=== PATIENT | male | born 1980 | race Caucasian/White ===

== ENCOUNTER 2016-12-31 18:22 | Emergency (ER) | payer OTHER ==
[~2016-12-31] VITALS: Ht 172.7 cm; Wt 68.7 kg
[~2016-12-31 18:22] MED LIST: NICO14DI18 TD
[2016-12-31 18:27] VITALS: TEMP 36.8; Ht 172.7 cm; Wt 68.7 kg
--- NOTE | 2016-12-31 19:39 | EMERGENCY ROOM VISIT NOTE ---
ED Visit Note First contact with patient: 19:25 CHIEF COMPLAINT: Low back pain HISTORY OF PRESENT ILLNESS: This 36 showed male patient presents to the emergency department ambulatory complaining of pain in the low back and right leg which began approximately 3 weeks ago. The pain was gradual in onset, is now constant and worse with movement. The patient notes the pain as sharp and a 3/10. The patient has taken ibuprofen with no relief of the pain. The patient denies any bowel or bladder difficulties. There has been no leg numbness or weakness, and no change in sensation. No nausea or vomiting or abdominal pain. No chest pain or shortness of breath. The patient has not had prior back injuries. The patient has continued to work 12 hour days. He did see the chiropractor and did not have any relief. REVIEW OF SYSTEMS: No dysuria or increased urinary frequency. A 6 system review of systems was completed and pertinent positives and negatives are in the HPI. ALLERGIES: No known drug allergies MEDICATIONS: None PMH: None SOCIAL HISTORY: The patient is a smoker. He is employed. PHYSICAL EXAM: VITALS: Vitals are noted on the nurse's note and reviewed by myself. No abnormalities noted. GENERAL: This is a 36-year-old male, in no acute distress, nondiaphoretic, well- developed well-nourished. SKIN: The skin was without rashes, erythema, edema, or bruising. Capillary refill less than 2 seconds. NECK: Supple without nuchal rigidity. No cervical spine tenderness. No paraspinous muscle tenderness. HEART: Regular rate and rhythm without murmurs gallops or rubs. LUNGS: Clear to auscultation bilaterally without wheezes, rales or rhonchi. ABDOMEN: Positive bowel sounds x 4. Normal tympanic percussion. Soft, nontender, without masses or organomegaly. Messina sign negative. MUSCULOSKELETAL: No muscle atrophy, erythema, or edema noted of the back. There is mild tenderness over the lumbar spinous processes. There is mild tenderness over the paraspinous muscles on the right. There is no tenderness over the thoracic spine or paraspinous muscles. There are no muscle spasms present. The patient is slow to move around with maximum tenderness with extension. Positive straight leg raise test. NEURO: Patient was alert and oriented to person place and time. Normal sensation to light and sharp touch. Deep tendon reflexes 2+ in the lower extremities. Dorsalis pedis pulse 2+ bilaterally. Strength is 5/5 in the lower extremities bilaterally. EMERGENCY DEPARTMENT COURSE: The patient complains of pain in the low back and down the right leg. He states the pain is primarily in the back of the leg. An x-ray of the lumbar spine reveals disc space narrowing at L5 S1. The patient does not have any neurologic deficit on exam or by history. He does not have a fever. I do not suspect cauda equina, cord compression or infectious process. This could potentially represent a lumbar radiculopathy, sciatica or possibly a muscular strain. The patient declined muscle relaxer. He declined pain medication. I recommended that the patient rest as he has a very physical job. He was advised no lifting within 10 pounds for 5 days. The patient's did not think that he would do this. The patient will be treated with prednisone. The patient should return immediately with any signs or symptoms of neurologic deficit or infectious process. Otherwise, he should follow-up with orthopedic spine surgery and/or a family doctor. DIFFERENTIAL DIAGNOSIS: Lumbar strain, degenerative disc disease, spondylolisthesis, herniated disc, spinal stenosis, osteoporosis, fracture, cauda equina syndrome, neoplasm, infection, inflammatory arthritis, among others. LUMBAR SPINE 5 VIEWS HISTORY: low back, right leg pain COMPARISON: None. FINDINGS: There is no fracture. No subluxation. Mild disc space narrowing at L5-S1. Cholecystectomy. IMPRESSION: No fracture or subluxation within the lumbar spine. Mild disc space narrowing at L5-S1 Problem List Medical Problems: (1) Fracture of thumb, left, closed Status: Resolved Current/Historical Medications Scheduled Aspirin-Caffeine (Syl Back & Body Pain Ex), 2 TABS PO PRN UD Multivitamins/Minerals (Mvi With Minerals), 1 TAB PO DAILY Prednisone (Prednisone), 0 PO DAILY Allergies Coded Allergies: No Known Allergies (Verified , 03/11/13) Vital Signs Date Time Temp Pulse Resp B/P (MAP) Pulse Ox O2 Delivery O2 Flow Rate FiO2 12/31/16 20:56 79 18 113/78 95 12/31/16 18:27 36.8 80 18 117/75 97 Room Air Medications Administered Medications (Trade) Dose Ordered Sig/Monica Route Start Time Stop Time Status Last Admin Dose Admin Prednisone (PredniSONE TAB) 60 mg NOW STAT PO 12/31/16 20:32 12/31/16 20:33 DC 12/31/16 20:48 60 MG Departure Information Impression Primary Impression: Back pain with radiation Dispostion Home / Self-Care Condition GOOD Prescriptions Prednisone (Prednisone) 20 Mg Tab 0 PO DAILY, #18 TAB 3 DAILY FOR 3 DAYS, THEN 2 DAILY FOR 3 DAYS, THEN 1 DAILY FOR 3 DAYS. Prov: Patricia Soria PA-C 12/31/16 Referrals No Doctor, Assigned (PCP) Truong Portillo M.D. Forms HOME CARE DOCUMENTATION FORM, IMPORTANT VISIT INFORMATION, WORK / SCHOOL INSTRUCTIONS Patient Instructions ED Low Back Pain Injury, My [facility] Additional Instructions Prednisone as prescribed, until finished Continue the Zantac to help protect the stomach Return with any fevers, loss of bowel or bladder control, numbness, tingling, weakness in the extremities Otherwise, follow up with orthopedics or your family doctor for further evaluation and management Rest, no lifting more than 10 pounds for 5 days
[2016-12-31] MEDS ORDERED: MULT-513 PO (19:50)
[2016-12-31] MEDS ORDERED: ASPI1TAB4 PO (19:50)
--- NOTE | 2016-12-31 20:23 | DIAGNOSTIC IMAGING REPORT ---
LUMBAR SPINE 5 VIEWS HISTORY: low back, right leg pain COMPARISON: None. FINDINGS: There is no fracture. No subluxation. Mild disc space narrowing at L5-S1. Cholecystectomy. IMPRESSION: No fracture or subluxation within the lumbar spine. Mild disc space narrowing at L5-S1 Electronically signed by: Michele Dinh M.D. 12/31/2016 8:21 PM Dictated Date/Time: 12/31/2016 8:20 PM
[2016-12-31] MEDS ORDERED: PRED20TA PO (20:33)
[2016-12-31 20:56] VITALS: BP 113/78; PULSE 79; O2SAT 95
== END 2016-12-31 20:58 | disposition home or self-care (01) ==
LOC: C.EDB 18:23 → C.EDD 20:58
DX: M54.5 Low back pain (principal); M99.73 Connective tissue and disc stenosis of intervertebral foramina of lumbar region; Z87.81 Personal history of (healed) traumatic fracture; Z79.82 Long term (current) use of aspirin

== ENCOUNTER → 2017-06-27 | Outpatient (CLI) | payer OTHER ==
[~2017-06-27] MED LIST changes: +ASPI1TAB4 PO; +MULT-513 PO; -NICO14DI18 TD; +PRED20TA PO
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
== END | disposition home or self-care (01) ==
LOC: C.RAD1850 11:46
PROVIDERS: ATTEND Nurse Practitioner Family
DX: M54.2 Cervicalgia (principal); V89.2XXA Person injured in unspecified motor-vehicle accident, traffic, initial encounter; Y99.0 Civilian activity done for income or pay

== ENCOUNTER 2024-12-28 15:15 | Inpatient (IN) ==
--- NOTE | 2024-12-28 15:40 | Emergency Department Note ---
History of Present Illness General Chief complaint: Back Injury/Pain Stated complaint: LOW BACK PAIN, DIZZY NAUSEA Time Seen by Provider: 12/28/24 15:33 History of Present Illness Maximum Pain Intensity: 6 This is a 44-year-old male that presents to the emergency department via private vehicle accompanied by with complaints of "dizziness, nausea, near-syncope, falling to the left side, low back pain". Patient notes that for 1 month now he has been experiencing low back pain that radiates down the bilateral legs to the toes. He has been seeing the chiropractor once per week for the back. However today about an hour and a half prior to arrival he bent down and when he stood up he began with dizziness, nausea, blurred vision. notes that she picked him up from work and he was quite pale. Patient notes that he feels like he is "lopsided" and falling towards the left side when he attempts to walk. The patient denies any history of similar. He notes he is otherwise healthy. He notes history of cholecystectomy. He denies any known drug allergies. Patient denies any chest pain or shortness of breath. No trauma, injury, fevers or vomiting. He has not lost control of the bowel or bladder. No numbness or tingling in genital region. He does also note pain wrapping into the abdomen and notes bilateral flank/abdominal pain. Home Medications Medication Instructions Recorded Confirmed Type bupropion HCl 150 mg 24 hr tablet, 150 mg PO QAM #30 tabs 10/25/24 12/28/24 Rx extended release atorvastatin 40 mg tablet 40 mg PO QPM #30 tabs 11/01/24 12/28/24 Rx cholecalciferol (vitamin D3) 25 25 mcg PO DAILY 12/28/24 12/28/24 History mcg (1,000 unit) tablet (Vitamin D3) cyanocobalamin (vitamin B-12) 1,000 mcg PO DAILY 12/28/24 12/28/24 History 1,000 mcg tablet (Vitamin B-12) famotidine 10 mg tablet (Heartburn 10 mg PO DAILY 12/28/24 12/28/24 History Relief (famotidine)) magnesium 250 mg tablet 250 mg PO DAILY 12/28/24 12/28/24 History multivitamin 1 tab PO QAM 12/28/24 12/28/24 History omega [id number]-fish oil 1,200 mg 1 cap PO DAILY 12/28/24 12/28/24 History (144 mg-216 mg) capsule (Fish Oil) potassium 99 mg tablet 99 mg PO DAILY 12/28/24 12/28/24 History Allergies Allergy/AdvReac Type Severity Reaction Status Date / Time No Known Allergies Allergy Mild Verified 12/28/24 18:53 Past Med/Surg History Problem List (Updated 12/28/24 @ 23:11 by Lalo Bunch PA-C) Dizziness (Acute) Blurred vision (Acute) Abnormal CT scan (Acute) Low back pain (Acute) Stroke-like symptoms Carotid artery dissection (Acute) FHx: Lares's disease In father Encounter for screening and preventative care Sore throat Anxiety Acute URI of multiple sites Cellulitis of hand without finger or thumb, right Injury of metacarpal bone Encounter for examination following treatment at hospital Left shoulder pain Neck pain on left side Smokes 1 pack of cigarettes per day Sinusitis Chest congestion Dysphagia (Acute) Foreign body in esophagus (Acute) Generalized headaches (Acute) Joint pain (Acute) Fatigue (Acute) Surgical History Hx of cholecystectomy Family History Mother Diabetes Hypertension Father Hypertension Other Thyroid cancer Denies family history of Ovarian cancer Prostate cancer Myocardial infarction Breast cancer Colorectal cancer Social History Smoking Status: Current every day smoker Tobacco Type: Cigarettes Age Started Using Tobacco: 17; packs per day: 1; Second Hand Exposure: No; Do You Dip or Chew Tobacco: No; Hx Alcohol Use: Yes Alcohol type: beer Hx Substance Use: No Preferred Language: Maori Communication Ability: Effective Story Reader Required: No marital status: Current Living Situation: Significant Other current occupational status: employed current occupation: [employer]er How many Children do You have: 3 Feels Safe at Home: Yes Childhood Exposure to Second-Hand Smoke: Yes Diet: regular caffeine: Yes (coffee) Dental Care, Regularly: Yes Physical Activity Frequency: Does not Exercise Seatbelt Use: sometimes Sunscreen Use: No Review of Systems A total of 10 systems reviewed and were otherwise negative Physical Exam Vital Signs Vital Signs - 24 hr 12/28/24 15:18 Temperature 36.6 C Temperature Source Temporal Artery Scan Pulse Rate 80 Respiratory Rate 16 Respiratory Effort / Characteristics Non-Labored Respiratory Depth Normal Respiratory Pattern Regular Blood Pressure 136/82 Blood Pressure Mean 100 Pulse Oximetry 97 Oxygen Delivery Method Room Air Sepsis Recent Fever Within 48 Hours No Sepsis New/Unexplained Change in Mental Status N/A Sepsis Action Taken by Nursing No Action Required VITAL SIGNS - Vital signs and nursing notes were reviewed. Stable and afebrile. GENERAL -44-year-old male appearing his stated age who is in no acute distress. Communicates well with provider and answers questions appropriately. SKIN - Without rashes. No meningeal or petechial rash. HEAD - NC/AT. EYES - PERRL with EOMI bilaterally. Sclera anicteric. Palpebral conjunctiva pink and moist with no injection noted. EARS - No deformities of external structures noted on gross examination bilaterally. No pain elicited with palpation of the tragus bilaterally. External auditory canals without discharge or otorrhea. Tympanic membranes pearly gonzalez without retraction or bulging. No fluid or purulent material visualized behind the TM. Handle of malleus, umbo, cone of light, pars tensa/flaccid all easily visualized. NOSE - Midline and without cyanosis. No epistaxis or purulent drainage noted. Septum midline without deviation or septal hematoma noted. MOUTH/OROPHARYNX - Without perioral cyanosis. Buccal mucosa pink and moist and without leukoplakia. Tongue midline with equal elevation of palate bilaterally. No tonsillar hypertrophy, erythema, or exudates noted. Good dentition noted. NECK - Neck with FROM. Supple to palpation. No lymphadenopathy noted. No nuchal rigidity. LUNGS - Chest wall symmetric without accessory muscle use, intercostals retractions, or central cyanosis. Normal vesicular breath sounds CTA B/L. No wheezes, rales, or rhonchi appreciated. CARDIAC - RRR with S1/S2. No murmur, rubs, or gallops appreciated. ABDOMEN - Abdominal contour normal without pulsations or visible masses. BS normoactive all four quadrants. No tenderness, palpable masses, hepatosplenomegaly, or ascites noted. MSKthere is no reproducible tenderness to palpation overlying the C, T or L- spine. There is no paraspinous musculature tenderness. No crepitus. No herpetic lesions. No erythema or edema. EXTREMITIES - No clubbing or peripheral cyanosis. +5/5 strength noted in UE/LE bilaterally. NEUROLOGIC - Cranial nerves II through XII grossly intact. Negative [id number]. Patient is able to stand and balance independently. Sensory intact to light touch throughout. Patellar reflexes +2/4. PSYCH -alert, oriented and pleasant on exam Course Administered Medications Discontinued Medications Aspirin (Aspirin 81 Mg Chew) 324 mg PO NOW STA Stop: 12/28/24 18:52 Last Admin: 12/28/24 19:06 Dose: 324 mg Documented By: RUTH Clopidogrel Bisulfate (Clopidogrel Bisulfate 300 Mg Tab) 300 mg PO NOW STA Stop: 12/28/24 18:52 Last Admin: 12/28/24 19:07 Dose: 300 mg Documented By: RUTH Gadobutrol (Gadobutrol 65ml Vial) 7.3 ml IV ONCE ONE Stop: 12/28/24 21:16 Last Admin: 12/28/24 21:16 Dose: 7.3 ml Documented By: [facility] Ioversol (Optiray 320 125ml) 115 ml IV ONCE ONE Stop: 12/28/24 16:35 Last Admin: 12/28/24 16:35 Dose: 115 ml Documented By: DONTA Ioversol (Optiray 320 125ml) 119 ml IV ONCE ONE Stop: 12/28/24 16:37 Last Admin: 12/28/24 16:37 Dose: 119 ml Documented By: DONTA Critical Care Time I have personally spent about 50 minutes of critical care time in the direct management of this patient. This includes bedside care, interpretation of diagnostic studies, and testing, discussion with consultants, patient, and family members, and other required patient management activities. This 50 minutes is in excess of all separately billable procedures. Medical Decision Making Laboratory Data 12/28/24 15:52 12/28/24 15:52 Lab Results 12/28/24 12/28/24 12/28/24 Range/Units 15:52 15:59 18:42 WBC 8.19 (4.8-10.8) K/ul RBC 4.35 L (4.70-6.10) M/uL Hgb 12.9 L (14.0-18.0) g/dl POC Hgb 13.6 L (14.0-18.0) g/dl Hct 38.4 L (42.0-52.0) % POC Hct 40 L (42-52) % MCV 88.3 (80.0-100.0) fL MCH 29.7 (25.0-34.0) pg MCHC 33.6 (32.0-36.0) g/dL RDW Std Deviation 44.9 (36.4-46.3) fL RDW Coeff of [place] 13.8 (11.5-14.5) % Plt Count 197 (130-400) K/uL MPV 10.1 (9.4-12.4) fL Immature Gran % (Auto) 0.2 % Neut % (Auto) 68.9 % Lymph % (Auto) 21.4 % [place] % (Auto) 6.8 % Eos % (Auto) 2.2 % Baso % (Auto) 0.5 % Neut # (Auto) 5.64 (1.40-6.50) K/uL Lymph # (Auto) 1.75 (1.20-3.40) K/uL [place] # (Auto) 0.56 (0.11-0.59) K/uL Eos # (Auto) 0.18 (0.00-0.50) K/uL Baso # (Auto) 0.04 (0.00-0.20) K/uL Immature Gran # (Auto) 0.02 (0.01-0.20) K/uL PT 10.6 (9.0-12.0) Seconds INR 1.0 (0.9-1.1) APTT 25 (21-31) Seconds PTT Ratio 0.9 POC Sodium 137 (135-144) mmol/L Sodium 138 (136-145) mmol/L POC Potassium 3.7 (3.3-5.0) mmol/L Potassium 3.8 (3.5-5.1) mmol/L POC Chloride 100 L (101-112) mmol/L Chloride 103 (98-107) mmol/L Carbon Dioxide 29 (21-32) mmol/L POC Total CO2 26 (24-31) mmol/L Anion Gap 6 (3-11) POC Anion Gap 16.0 (16-25) mmol/L POC BUN 9 (7-18) mg/dl BUN 10 (6-23) mg/dl Creatinine 0.89 (0.6-1.4) mg/dl POC Creatinine 0.9 (0.6-1.3) mg/dl Est Cr Clr Drug Dosing Not Reportable eGFR 108.37 BUN/Creatinine Ratio 11.2 (10-20) Glucose 91 (70-99(Fasting)) mg/dl POC Glucose (other) 94 (70-99) mg/dl Calcium 9.1 (8.6-10.3) mg/dl POC Ioniz Calcium [place] 1.18 (1.12-1.32) mmol/l Total Bilirubin 0.4 (0.2-1.0) mg/dl AST 18 (13-39) U/L ALT 17 (7-52) U/L Alkaline Phosphatase 61 (34-104) U/L Troponin I High Sens 2.5 (0-20) pg/ml Total Protein 7.0 (6.0-8.3) gm/dl Albumin 4.1 (3.4-5.0) gm/dl Globulin 2.9 (2.5-4.0) gm/dl Albumin/Globulin Ratio 1.4 (0.9-2) Lipase 17 (11-82) U/L TSH 1.856 (0.300-4.500) uIu/ml Urine Color Yellow Urine Appearance Clear (Clear) Urine pH 7.0 (4.5-7.5) Ur Specific [place] 1.014 (1.000-1.030) Urine Protein Negative (Negative) Urine Glucose (UA) Negative (Negative) Urine Ketones Negative (Negative) Urine Blood Negative (Negative) Urine Nitrite Negative (Negative) Urine Bilirubin Negative (Negative) Urine Urobilinogen Negative (Negative) Ur Leukocyte Esterase Negative (Negative) Urine Comment Imaging Data Radiologist's Impression: Abdomen/Pelvis CT 12/28/24 15:41 EXAMINATION: Abdomen and pelvis CT with CLINICAL HISTORY: Lower back pain x 1 month. Dizzy, lightheaded, recent chiropractor PRIORS: None TECHNIQUE: Contiguous axial images were obtained through the abdomen and pelvis with the use of intravenous contrast. Sagittal and coronal reformations are supplied. FINDINGS: Mild hypoventilatory changes at the lung bases. Liver is enlarged measuring 18.7 cm. Gallbladder surgically absent. Allowing for phase of contrast, the liver enhances homogeneously. Portal vein is patent. Contrast enhanced pancreas, spleen, stomach, adrenals, aorta and IVC are morphologically unremarkable. Kidneys enhance symmetrically. No obstructing calculus or hydronephrosis. Mild atherosclerotic disease of the distal abdominal aorta. Appendix is normal. Urinary bladder distends normally. Prostate normal in size. Seminal vesicles are symmetric. Moderate amount of formed stool present in the colon. No dilated loops of bowel or pericolonic inflammatory change. No ascites, extraluminal gas or adenopathy. In bone windows, no acute osseous abnormality. Moderate facet hypertrophic changes at L4-L5 and L5-S1. IMPRESSION: 1. No CT evidence of an acute or traumatic abnormality in the abdomen or pelvis. 2. Moderate facet hypertrophic changes at L4-L5 and L5-S1. 3. Hepatomegaly Electronically signed by Estelle Dwyer 12-28-2024 5:47 PM Chest CTA 12/28/24 15:41 EXAMINATION: CT angio chest PE protocol CLINICAL HISTORY: Lower back pain started a month ago. Recent chiropractor visit PRIORS: None TECHNIQUE: Contiguous axial images were obtained through the chest with the use of intravenous contrast. Sagittal and coronal reformations are supplied. FINDINGS: The pulmonary arteries are well-opacified no central or peripheral pulmonary embolism. Trachea and mainstem bronchi are patent. Mild soft tissue attenuation present in the anterior mediastinum, possibly residual thymic tissue. Left-sided aortic arch present. Motion artifact through the mediastinum. Heart size is normal. No pleural or pericardial effusion. Possible prominent right hilar lymph node superiorly. No axillary or subpectoral adenopathy. Thyroid is normal in size. Muscle bulk is normal. Chest is well-expanded with very mild hypoventilatory changes at the lung bases. No airspace consolidation, pneumothorax or pulmonary contusion. Limited visualization of the upper abdomen is unremarkable. In bone windows no acute fracture or dislocation. No acute osseous abnormality. IMPRESSION: No CTA evidence of an acute or traumatic abnormality in the chest. Electronically signed by Estelle Dwyer 12-28-2024 5:43 PM Head CTA 12/28/24 15:41 EXAMINATION: CT angio head without and with CLINICAL HISTORY: Kieran, chiropractor PRIORS: None TECHNIQUE: Contiguous axial images were obtained through the head without the use of intravenous contrast. Sagittal and coronal reformations are supplied. CTA imaging was also obtained through the brain. Reformations supplied. FINDINGS: HEAD: Mild parenchymal volume loss noted involving the frontal lobes. Gonzalez-white differentiation is preserved. No edema or midline shift. No intra-axial or extra-axial hemorrhage. Ventricles are normal in size and configuration. Brainstem and cerebellum have a normal appearance. Calvarium unremarkable. Paranasal sinuses and mastoid air cells are well-pneumatized. Globes are intact. No retrobulbar abnormality. CTA: The vertebral arteries contribute to the basilar artery. No aneurysmal dilatation. [place] of [place] is complete. Major vessels are patent. No enhancing mass. Beam hardening artifact noted through the skull base. Please see CTA of the neck. No high-grade stenosis, atherosclerotic disease patterning artifact through the cavernous sinuses. Posterior circulation is unremarkable. Cerebellum and brainstem normal. Venous contamination noted. IMPRESSION: No CT evidence of an acute intracranial abnormality. Electronically signed by Estelle Dwyer 12-28-2024 6:33 PM Neck CTA 12/28/24 15:41 EXAM: CT angio neck with con CLINICAL HISTORY: Dizzy, lightheaded bending over today, has been seeing chiropractor over last month, once a week. TECHNIQUE: Contiguous CTA axial images were obtained through the neck with the administration of intravenous contrast. Coronal reformations are supplied. Sagittal and coronal MIPS are supplied. No oblique images are supplied. COMPARISON: None FINDINGS: Dental amalgam creates significant beam hardening artifact diminishing image quality. Left-sided aortic arch is present. Appropriate takeoff of the 3 great vessels noted. The vertebral arteries are codominant with normal caliber and patency. Both contribute to the basilar artery at the level of the brainstem. No evidence of vertebralartery dissection, atherosclerotic disease or high-grade stenosis. The common, internal and external carotid arteries opacified normally with no atherosclerotic disease, high-grade stenosis or extravasation. No thrombus identified. The distal internal carotid arteries enter the petrous portion of the skull base normally. Within the limitations of the study, the possibility of a subtle intimal flap is noted within the distal right internal carotid artery, distal to the petrous ridge, images 97 through 1 02, series 10 and corresponding coronal image 53, series 900. No sagittal reformations available. No narrowing of the lumen, thrombus or surrounding hematoma. The contralateral right internal carotid artery is unremarkable at the level of the petrous ridge and cavernous sinuses. IMPRESSION: 1. A subtle finding is discussed above which may represent an intimal flap within the distal right internal carotid artery, distal to the petrous portion of the skull, identified on axial and orthogonal images. While this could represent artifact due to contrast bolus and beam hardening, a right distal internal carotid artery dissection is a possibility given the stated clinical history. Neurology evaluation strongly encouraged. 2. No atherosclerotic plaque or hemodynamically significant stenosis. ACT 112: Positive. There are findings on this examination that require communication between the performing entity and the patient following Patient Test Result Information Act ([place] ACT 112) guidelines. Electronically signed by Estelle Dwyer 12-28-2024 6:33 PM Orbit X-Ray 12/28/24 19:04 EXAMINATION: X-ray orbits for MRI CLINICAL HISTORY: History of metal in eyes, screening for MRI PRIORS: None TECHNIQUE: PA, Schwartz' view and lateral view orbits FINDINGS: No metal or radiopaque foreign body in the orbits. Dental hardware/wire noted in the upper mouth. Osseous structures unremarkable. Right maxillary sinus is opacified. IMPRESSION: No metal in the orbits. Electronically signed by Estelle Dwyer 12-28-2024 7:49 PM MDM Narrative Patient was seen and evaluated as above in room D02. Review was performed of triage nursing notes and vital signs. I did review pertinent previous visits and patient history. After obtaining a thorough history and physical examination the above work up was performed. Patient presents to us today for evaluation of low back pain that radiates down the bilateral legs x 1 month now today with pain wrapping into the abdomen, nausea, near vomiting, near syncope, pale, listing to the left side, blurred vision. On my assessment there are no focal deficits. NIHSS is 0 at this time. Negative finger-nose. He is able to stand, ambulate independently. No balance troubles on my examination of the patient. GCS 15. No indication for TNK at the present time. Options of care were discussed with the patient. IV access was established. Labs were drawn. Noting the patient's range of symptoms I do believe that CT assessment is warranted. CT angios of the head, neck and chest will be obtained as well as a CT scan of the abdomen/pelvis. EKG was performed. Per my interpretation this reveals normal sinus rhythm with sinus arrhythmia at a rate of 79 bpm. QTc 456. QRS 88. No ST elevation on this rhythm tracing. An i-STAT was obtained for prompt renal function pending CT scan. Renal function returned normal with a creatinine of 0.9. Glucose was also assessed on this i-STAT and it was found to be normal at 94. There is no hypoglycemia. Will proceed with CT imaging stat. No leukocytosis. Minor anemia noted with hemoglobin of 12.9. No emergent metabolic disturbance. Troponin negative. Lipase normal. TSH was euthyroid state. Urinalysis negative. Per radiologist on the CT of the neck there is "A subtle finding is discussed above which may represent an intimal flap within the distal right internal carotid artery, distal to the petrous portion of the skull, identified on axial and orthogonal images. While this could represent artifact due to contrast bolus and beam hardening, a right distal internal carotid artery dissection is a possibility given the stated clinical history. Neurology evaluation strongly encouraged." I did speak with Dr. Murray of neurology. He he recommended loading with aspirin full dose, Plavix 300 mg p.o. now and MRI brain stroke protocol and MRA head and neck. He then recommended if the MRIs confirm the dissection, to discuss with vascular. Plan at this time is medicine admission. I did review benefit versus risk of aspirin and Plavix with the patient. It is felt that the benefit outweighed risk. He denies any history of GI bleed. No recent trauma or injury. No history of bleeding disorders. Orders were placed. Case discussed with the hospitalist service. Please refer to further documentation regarding his stay. In the evaluation and treatment of this patient the following differential diagnoses were entertained: CVA, TIA, intracranial hemorrhage, vertebral artery dissection, PE, kidney stone, UTI, pyelonephritis, lumbar radiculopathy, cauda equina syndrome, among others. Impression & Plan Carotid artery dissection, Low back pain, Abnormal CT scan, Blurred vision, Dizziness Discharge Plan Visit Data Chief Complaint: Back Injury/Pain Stated Complaint: LOW BACK PAIN, DIZZY NAUSEA ED Provider: Natalio Harden ED Midlevel Provider: Lalo Bunch Discharge Problem: Carotid artery dissection, Low back pain, Abnormal CT scan, Blurred vision, Dizziness Patient Disposition: Admitted As Inpatient Condition: Good Discharge Instructions Interventions: ED Discharge Assessment Last Done: 12/28/24 21:45
[2024-12-28 16:08] LABS: Basophils # (auto) 0.04 K/uL (0.00-0.20); Basophils % (auto) 0.5 %; Eosinophils # (auto) 0.18 K/uL (0.00-0.50); Eosinophils % (auto) 2.2 %; Hematocrit (blood only) 38.4 % (42.0-52.0); Hemoglobin 12.9 g/dl (14.0-18.0); Immature Granulocytes # (auto) 0.02 K/uL (0.01-0.20); Immature Granulocytes % (auto) 0.2 %; Lymphocytes # (auto) 1.75 K/uL (1.20-3.40); Lymphocytes % (auto) 21.4 %; Mean Corpuscular Hemoglobin 29.7 pg (25.0-34.0); Mean Corpuscular Hgb Conc 33.6 g/dL (32.0-36.0); Mean Corpuscular Volume 88.3 fL (80.0-100.0); Mean Platelet Volume 10.1 fL (9.4-12.4); Monocytes # (auto) 0.56 K/uL (0.11-0.59); Monocytes % (auto) 6.8 %; Neutrophils # (auto) 5.64 K/uL (1.40-6.50); Neutrophils % (auto) 68.9 %; Platelet Count 197 K/uL (130-400); RDW Coefficient of Variation 13.8 % (11.5-14.5); RDW Standard Deviation 44.9 fL (36.4-46.3); Red Blood Count 4.35 M/uL (4.70-6.10); White Blood Count 8.19 K/ul (4.8-10.8)
[2024-12-28 16:11] LABS: iSTAT Creatinine 0.9 mg/dl (0.6-1.3); iSTAT Hemoglobin 13.6 g/dl (14.0-18.0); iSTAT Ionized Calcium 1.18 mmol/l (1.12-1.32); iSTAT Potassium 3.7 mmol/L (3.3-5.0)
[2024-12-28 16:25] LABS: Alanine Aminotransferase 17 U/L (7-52); Albumin Globulin Ratio 1.4 (0.9-2); Albumin Level 4.1 gm/dl (3.4-5.0); Alkaline Phosphatase 61 U/L (34-104); Anion Gap 6 (3-11); Aspartate Aminotransferase 18 U/L (13-39); BUN Creatinine Ratio 11.2 (10-20); Bilirubin,Total 0.4 mg/dl (0.2-1.0); Blood Urea Nitrogen 10 mg/dl (6-23); Calcium 9.1 mg/dl (8.6-10.3); Carbon Dioxide 29 mmol/L (21-32); Chloride 103 mmol/L (98-107); Globulin 2.9 gm/dl (2.5-4.0); Glucose 91 mg/dl (70-99(Fasting)); Lipase 17 U/L (11-82); Potassium 3.8 mmol/L (3.5-5.1); Sodium 138 mmol/L (136-145)
[2024-12-28 16:31] LABS: Troponin I High Sensitivity 2.5 pg/ml (0-20)
[2024-12-28] MEDS: OPTIRAY 320 125ml IV ONE ×2 (16:35→16:37)
[2024-12-28 16:36] LABS: Partial Thromboplastin Ratio 0.9; Partial Thromboplastin Time 25 Seconds (21-31); Prothrombin Time 10.6 Seconds (9.0-12.0)
[2024-12-28 16:41] LABS: Thyroid Stimulating Hormone 1.856 uIu/ml (0.300-4.500)
--- NOTE | 2024-12-28 17:44 | CT Scan Report ---
EXAMINATION: CT angio chest PE protocol CLINICAL HISTORY: Lower back pain started a month ago. Recent chiropractor visit PRIORS: None TECHNIQUE: Contiguous axial images were obtained through the chest with the use of intravenous contrast. Sagittal and coronal reformations are supplied. FINDINGS: The pulmonary arteries are well-opacified no central or peripheral pulmonary embolism. Trachea and mainstem bronchi are patent. Mild soft tissue attenuation present in the anterior mediastinum, possibly residual thymic tissue. Left-sided aortic arch present. Motion artifact through the mediastinum. Heart size is normal. No pleural or pericardial effusion. Possible prominent right hilar lymph node superiorly. No axillary or subpectoral adenopathy. Thyroid is normal in size. Muscle bulk is normal. Chest is well-expanded with very mild hypoventilatory changes at the lung bases. No airspace consolidation, pneumothorax or pulmonary contusion. Limited visualization of the upper abdomen is unremarkable. In bone windows no acute fracture or dislocation. No acute osseous abnormality. IMPRESSION: No CTA evidence of an acute or traumatic abnormality in the chest. Electronically signed by Estelle Dwyer 12-28-2024 5:43 PM
--- NOTE | 2024-12-28 17:48 | CT Scan Report ---
EXAMINATION: Abdomen and pelvis CT with CLINICAL HISTORY: Lower back pain x 1 month. Dizzy, lightheaded, recent chiropractor PRIORS: None TECHNIQUE: Contiguous axial images were obtained through the abdomen and pelvis with the use of intravenous contrast. Sagittal and coronal reformations are supplied. FINDINGS: Mild hypoventilatory changes at the lung bases. Liver is enlarged measuring 18.7 cm. Gallbladder surgically absent. Allowing for phase of contrast, the liver enhances homogeneously. Portal vein is patent. Contrast enhanced pancreas, spleen, stomach, adrenals, aorta and IVC are morphologically unremarkable. Kidneys enhance symmetrically. No obstructing calculus or hydronephrosis. Mild atherosclerotic disease of the distal abdominal aorta. Appendix is normal. Urinary bladder distends normally. Prostate normal in size. Seminal vesicles are symmetric. Moderate amount of formed stool present in the colon. No dilated loops of bowel or pericolonic inflammatory change. No ascites, extraluminal gas or adenopathy. In bone windows, no acute osseous abnormality. Moderate facet hypertrophic changes at L4-L5 and L5-S1. IMPRESSION: 1. No CT evidence of an acute or traumatic abnormality in the abdomen or pelvis. 2. Moderate facet hypertrophic changes at L4-L5 and L5-S1. 3. Hepatomegaly Electronically signed by Estelle Dwyer 12-28-2024 5:47 PM
--- NOTE | 2024-12-28 18:33 | CT Scan Report ---
EXAM: CT angio neck with con CLINICAL HISTORY: Dizzy, lightheaded bending over today, has been seeing chiropractor over last month, once a week. TECHNIQUE: Contiguous CTA axial images were obtained through the neck with the administration of intravenous contrast. Coronal reformations are supplied. Sagittal and coronal MIPS are supplied. No oblique images are supplied. COMPARISON: None FINDINGS: Dental amalgam creates significant beam hardening artifact diminishing image quality. Left-sided aortic arch is present. Appropriate takeoff of the 3 great vessels noted. The vertebral arteries are codominant with normal caliber and patency. Both contribute to the basilar artery at the level of the brainstem. No evidence of vertebralartery dissection, atherosclerotic disease or high-grade stenosis. The common, internal and external carotid arteries opacified normally with no atherosclerotic disease, high-grade stenosis or extravasation. No thrombus identified. The distal internal carotid arteries enter the petrous portion of the skull base normally. Within the limitations of the study, the possibility of a subtle intimal flap is noted within the distal right internal carotid artery, distal to the petrous ridge, images 97 through 1 02, series 10 and corresponding coronal image 53, series 900. No sagittal reformations available. No narrowing of the lumen, thrombus or surrounding hematoma. The contralateral right internal carotid artery is unremarkable at the level of the petrous ridge and cavernous sinuses. IMPRESSION: 1. A subtle finding is discussed above which may represent an intimal flap within the distal right internal carotid artery, distal to the petrous portion of the skull, identified on axial and orthogonal images. While this could represent artifact due to contrast bolus and beam hardening, a right distal internal carotid artery dissection is a possibility given the stated clinical history. Neurology evaluation strongly encouraged. 2. No atherosclerotic plaque or hemodynamically significant stenosis. ACT 112: Positive. There are findings on this examination that require communication between the performing entity and the patient following Patient Test Result Information Act ([place] ACT 112) guidelines. Electronically signed by Estelle Dwyer 12-28-2024 6:33 PM
--- NOTE | 2024-12-28 18:34 | CT Scan Report ---
EXAMINATION: CT angio head without and with CLINICAL HISTORY: Dizzy, chiropractor PRIORS: None TECHNIQUE: Contiguous axial images were obtained through the head without the use of intravenous contrast. Sagittal and coronal reformations are supplied. CTA imaging was also obtained through the brain. Reformations supplied. FINDINGS: HEAD: Mild parenchymal volume loss noted involving the frontal lobes. Gonzalez-white differentiation is preserved. No edema or midline shift. No intra-axial or extra-axial hemorrhage. Ventricles are normal in size and configuration. Brainstem and cerebellum have a normal appearance. Calvarium unremarkable. Paranasal sinuses and mastoid air cells are well-pneumatized. Globes are intact. No retrobulbar abnormality. CTA: The vertebral arteries contribute to the basilar artery. No aneurysmal dilatation. Koi of Reese is complete. Major vessels are patent. No enhancing mass. Beam hardening artifact noted through the skull base. Please see CTA of the neck. No high-grade stenosis, atherosclerotic disease patterning artifact through the cavernous sinuses. Posterior circulation is unremarkable. Cerebellum and brainstem normal. Venous contamination noted. IMPRESSION: No CT evidence of an acute intracranial abnormality. Electronically signed by Estelle Dwyer 12-28-2024 6:33 PM
[2024-12-28 19:03] LABS: Appearance Urine Clear (Clear); Bilirubin Urine Negative (Negative); Blood Urine Negative (Negative); Color Urine Yellow; Glucose Urine UA Negative (Negative); Ketones Urine Negative (Negative); Leukocyte Esterase Urine Negative (Negative); Nitrite Urine Negative (Negative); Protein Urine Negative (Negative); Specific Gravity Urine 1.014 (1.000-1.030); Urobilinogen Urine Negative (Negative)
[2024-12-28] MEDS: ASPIRIN 81 MG CHEW PO STA (19:06)
[2024-12-28] MEDS: CLOPIDOGREL BISULFATE 300 MG TAB PO STA (19:07)
--- NOTE | 2024-12-28 19:33 | History & Physical Report ---
Date of Service December 28, 2024 Assessment & Plan (1) Carotid artery dissection: (2) Stroke-like symptoms: (3) Low back pain: Plan Patient is a 44-year-old male with past medical history of GERD, hyperlipidemia, tobacco use. patient presented after an episode when he went from bending over to standing which resulted in dizziness, nausea, blurry vision, near syncope, and patient leaning to the left side. Neck CTA revealed possible right distal internal carotid artery dissection versus artifact. Patient is still symptomatic on admission, will admit for stroke workup and further carotid artery evaluation with MRI brain and MRA angiograms. #right distal internal carotid artery dissection/stroke workup - Neck CTA revealed possible right distal internal carotid artery dissection versus artifact. Head CTA negative for acute changes. - stroke without TNK order set - active ROM, Q4H neuro checks, pt/ot evals, speech eval - DAPT with ASA and plavix - loaded in ED - continue with asa 81mg PO and Plavix 75mg PO daily - continue home atorvastatin 40mg daily - Allow for permissive hypertension with goal parameters 220/110 until MRI resulted - Telemetry monitoring - MRI Brain, MR angio neck, MRI angio brain ordered - echo with bubble study ordered - lipid panel and A1C with AM labs - neurology and vascular surgery consulted #low back pain - constant x1 month. AP CT showed moderate facet hypertrophic changes at l4-l5 and l5-s1 level. - Tylenol prn #anemia - mild. normocytic normochromic. Hgb drop from 14.5 -> 12.9 over 2 years. - trend CBC #HLD - continue atorvastatin #GERD - continue famotidine #mental health - continue bupropion #tobacco use - 1 ppd cigarettes. - NicoDerm patched ordered - encourage smoking cessation VTE ppx: SCDs Dispo:PCU Admission and Anticipated Discharge Date Admission Date: 12/28/24 History of Present Illness Chief Complaint: back pain Primary Care Provider: Tamera Del Rosario MD Patient is a 44-year-old male with past medical history of GERD, hyperlipidemia, tobacco use. patient presented after an episode when he went from bending over to standing which resulted in dizziness, nausea, blurry vision, near syncope, and patient leaning to the left side. Neck CTA revealed possible right distal internal carotid artery dissection versus artifact. Patient is still symptomatic on admission, will admit for stroke workup and further carotid artery evaluation with MRI brain and MRA angiograms. Patient seen at bedside with his present. He stated that for the past month he has had constant low back pain that radiates to his bilateral toes so he has been going to the chiropractor who has been mainly working on his low back but also his neck. Today while at work he went from being bent over to standing and had dizziness, nausea, paleness, and felt like he was going to pass out and saw black spots. Symptoms are still present however slowly improving. He also felt like he was Leaning to the left side when walking. He also endorses shortness of breath during the presyncopal episode. He denies any other episodes similar to this other than what happened today. He has had no chest pain, dizziness, abdominal pain recently. He stated he has had intermittent headaches over the past month. He does endorse smoking 1 pack of cigarettes per day for the past 30 years. He occasionally drinks 1 glass of wine. he took his home medications today other than his atorvastatin which he takes in the evening, will order. Patient denies any personal or family history of CVA. He wishes to be full code. Handoff from ER provider stated that neurology is aware, will eval the patient in the morning. Neurology would like vascular consult. Allergies Allergy/AdvReac Type Severity Reaction Status Date / Time No Known Allergies Allergy Mild Verified 12/31/24 11:36 Home Medications Medication Instructions Recorded Confirmed Type bupropion HCl 150 mg 24 hr tablet, 150 mg PO QAM #30 tabs 10/25/24 12/31/24 Rx extended release atorvastatin 40 mg tablet 40 mg PO QPM #30 tabs 11/01/24 12/31/24 Rx cholecalciferol (vitamin D3) 25 25 mcg PO DAILY 12/28/24 12/31/24 History mcg (1,000 unit) tablet (Vitamin D3) cyanocobalamin (vitamin B-12) 1,000 mcg PO DAILY 12/28/24 12/31/24 History 1,000 mcg tablet (Vitamin B-12) famotidine 10 mg tablet (Heartburn 10 mg PO DAILY 12/28/24 12/31/24 History Relief (famotidine)) magnesium 250 mg tablet 250 mg PO DAILY 12/28/24 12/31/24 History multivitamin 1 tab PO QAM 12/28/24 12/31/24 History omega 7-ltr-ouc-fish oil 1,200 mg 1 cap PO DAILY 12/28/24 12/31/24 History (144 mg-216 mg) capsule (Fish Oil) potassium 99 mg tablet 99 mg PO DAILY 12/28/24 12/31/24 History Past Med/Surg History Problem List Dizziness (Acute) Blurred vision (Acute) Abnormal CT scan (Acute) Low back pain (Acute) Stroke-like symptoms FHx: [place]'s disease In father Encounter for screening and preventative care Sore throat Anxiety Acute URI of multiple sites Cellulitis of hand without finger or thumb, right Injury of metacarpal bone Encounter for examination following treatment at hospital Left shoulder pain Neck pain on left side Smokes 1 pack of cigarettes per day Sinusitis Chest congestion Dysphagia (Acute) Foreign body in esophagus (Acute) Generalized headaches (Acute) Joint pain (Acute) Fatigue (Acute) Medical History Carotid artery dissection PFO (patent foramen ovale) Surgical History Hx of cholecystectomy Family History Mother Diabetes Hypertension Father Hypertension Other Thyroid cancer Denies family history of Ovarian cancer Prostate cancer Myocardial infarction Breast cancer Colorectal cancer Social History (Updated 12/31/24 @ 11:39 by Jaqui Walls LPN) Smoking Status: Current every day smoker Tobacco Type: Cigarettes Age Started Using Tobacco: 17; packs per day: 1; Cigarettes Per Day: a pack a day; Second Hand Exposure: No; Do You Dip or Chew Tobacco: No; Hx Alcohol Use: Yes Alcohol type: wine Hx Substance Use: No Preferred Language: Swedish Communication Ability: Effective Retail Pricing Coordinator Required: No Beliefs That Will Affect Care: None marital status: Current Living Situation: Significant Other current occupational status: employed current occupation: [employer] How many Children do You have: 3 Feels Safe at Home: Yes Childhood Exposure to Second-Hand Smoke: Yes Diet: regular caffeine: Yes (coffee) Dental Care, Regularly: Yes Physical Activity Frequency: Does not Exercise Seatbelt Use: sometimes Sunscreen Use: No Assistive Devices: None Review of Systems Review of Systems: see HPI Physical Exam Physical Exam: The patient is awake, alert and oriented 3, well developed and well nourished, normocephalic and atraumatic, in no acute distress. Non-toxic appearing. HEENT- EOMI, mucous membranes moist. Hearing grossly intact. Heart-normal S1 and S2. No murmurs, rubs or gallops. Lungs-clear bilaterally, no respiratory distress, no accessory muscle use. Abdomen-normal bowel sounds and soft. No ascites noted. Non-tender. Extremities- no clubbing, cyanosis, or edema. Rheumatologic-normal range of motion. Psychiatric-normal affect. Neurologic: PERRL, EOMI, accommodation nl, no face palsy, no dysarthria Results & Data Results & Data Vital Signs (Past 12 Hours) Vital Signs Temp Pulse Resp BP Pulse Ox O2 Del Method 12/28/24 15:18 36.6 C 80 16 136/82 97 Room Air Laboratory Results Reviewed CBC, CMP, PT/INR, troponin, UA, TSH Diagnostic Findings reviewed AP CT, chest CTA, head CTA, neck CTA orbital XR pending Medications Administered EDPlavix 300 Mg p.o., aspirin 324 Mg p.o. ECG Additional Comments: NSR, Heart rate 79 QTc 456 Code Status & VTE Plan Code Status full VTE Prophylaxis Plan VTE Prophylaxis will be ordered: Yes Supervising Physician Co-Signing Physician Notes I personally saw and examined the patient. I independently reviewed the labs, EKG, imaging, problem list, medication list, past medical history and family history. I verified all avalos points and agree with Debbie Delgadillo PA-C with the following exceptions and/or additions: 44 year old male presents to the ER with dizziness, nausea and blurry vision. Patient currently asymptomatic when seen. O/E HS RRR, no murmurs, Chest CTAB, Abdo SNT, CN2->12 intact, no limb extremity weakness or change in sensation A/P Dizziness - MRA normal, awaiting neurology review of imaging PG Care Time/CCT Total # of Minutes Spent Total Time Spent with Patient: Total time spent is greater than 50% in coordination of care (as documented) at patient's floor/unit and/or counseling patient: Coding Level of Care Code 84948 INT INP/OBS CARE 375MIN Diagnoses Carotid artery dissection I77.71 Stroke-like symptoms R29.90 Low back pain M54.50
--- NOTE | 2024-12-28 19:49 | XRay Report ---
EXAMINATION: X-ray orbits for MRI CLINICAL HISTORY: History of metal in eyes, screening for MRI PRIORS: None TECHNIQUE: PA, Schwartz' view and lateral view orbits FINDINGS: No metal or radiopaque foreign body in the orbits. Dental hardware/wire noted in the upper mouth. Osseous structures unremarkable. Right maxillary sinus is opacified. IMPRESSION: No metal in the orbits. Electronically signed by Estelle Dwyer 12-28-2024 7:49 PM
[2024-12-28] MEDS: GADOBUTROL 65ML VIAL IV ONE (21:16)
--- NOTE | 2024-12-28 21:43 | Electrocardiogram Report ---
Test Reason : Blood Pressure : */* mmHG Vent. Rate : 79 BPM Atrial Rate : 79 BPM P-R Int : 154 ms QRS Dur : 88 ms QT Int : 398 ms P-R-T Axes : 60 38 38 degrees QTcB Int : 456 ms Normal sinus rhythm with sinus arrhythmia Normal ECG When compared with ECG of 11-Mar-2013 20:16, No significant change Confirmed by Titus Card ([id number]) on 12/28/2024 9:43:00 PM Referred By: REFERRED SELF Confirmed By: Titus Card
[2024-12-28] MEDS ORDERED: DOCUSATE SODIUM 100 MG CAP PO PRN (22:09)
[2024-12-28] MEDS ORDERED: PHARMACIST DISCHARGE MED REC CONSULT PRN (22:09)
[2024-12-28] MEDS ORDERED: MELATONIN 3 MG TAB PO PRN (22:09)
[2024-12-28] MEDS ORDERED: ONDANSETRON INJ 2 MG/ML 2 ML VIAL IV PRN (22:09)
[2024-12-28] MEDS: ATORVASTATIN 40 MG TAB PO SCH (23:14)
[2024-12-28] MEDS: LIDOCAINE 5% 1 PATCH TD STA (23:32)
--- NOTE | 2024-12-28 23:33 | Magnetic Resonance Report ---
Exam(s): MRI HEAD Without Contrast EXAM: MR Head Without Intravenous Contrast CLINICAL HISTORY: Reason for exam: dizziness, possible dissection, falling to left. TECHNIQUE: Magnetic resonance images of the head/brain without intravenous contrast in multiple planes. COMPARISON: MRI brain from 03/14/[address] head and angiogram of the brain from 12/28/2024 FINDINGS: Brain: Unremarkable. No mass. No hemorrhage. No acute infarct. Ventricles: Unremarkable. No ventriculomegaly. Bones/joints: Unremarkable. No acute fracture. Sinuses: There is fluid signal in the right maxillary sinus suggesting chronic sinusitis, unchanged. Mastoid air cells: Unremarkable as visualized. No mastoid effusion. Orbits: Unremarkable as visualized. IMPRESSION: 1. There is fluid signal in the right maxillary sinus suggesting chronic sinusitis, unchanged. 2. Unremarkable appearance of the brain. No infarct or acute intracranial process is identified. Electronically signed by: Chato Viveros MD 12/28/24 23:32 PM
--- NOTE | 2024-12-28 23:35 | Magnetic Resonance Report ---
Exam(s): MRA HEAD Without Contrast EXAM: MR Angiography Head Without Intravenous Contrast CLINICAL HISTORY: Reason for exam: dizziness, possible dissection, falling to left. TECHNIQUE: Magnetic resonance angiography images of the head without intravenous contrast. COMPARISON: CT angiogram of the head from 12/28/2024 FINDINGS: Right internal carotid artery: No acute findings. Intracranial segment is patent with no significant stenosis. No aneurysm. Right anterior cerebral artery: Unremarkable. No occlusion or significant stenosis. No aneurysm. Right middle cerebral artery: Unremarkable. No occlusion or significant stenosis. No aneurysm. Right posterior cerebral artery: Unremarkable. No occlusion or significant stenosis. No aneurysm. Right vertebral artery: Unremarkable as visualized. Left internal carotid artery: No acute findings. Intracranial segment is patent with no significant stenosis. No aneurysm. Left anterior cerebral artery: Unremarkable. No occlusion or significant stenosis. No aneurysm. Left middle cerebral artery: Unremarkable. No occlusion or significant stenosis. No aneurysm. Left posterior cerebral artery: Unremarkable. No occlusion or significant stenosis. No aneurysm. Left vertebral artery: Unremarkable as visualized. Basilar artery: Unremarkable. No occlusion or significant stenosis. No aneurysm. IMPRESSION: Normal head/brain MRA. Electronically signed by: Chato Viveros MD 12/28/24 23:34 PM
--- NOTE | 2024-12-28 23:37 | Magnetic Resonance Report ---
Exam(s): MRA NECK W/WO Contrast IV Amt: 7.3mL Gadavist given IV RT AC EXAM: MR Angiography Neck Without and With Intravenous Contrast CLINICAL HISTORY: Reason for exam: dizziness, possible dissection, falling to left. TECHNIQUE: Magnetic resonance angiography images of the neck without and with intravenous contrast. CONTRAST: Patient received 7.3mL Gadavist given IV RT AC of IV contrast COMPARISON: CT angiogram of the brain from December 28 2024 FINDINGS: Right common carotid artery: Unremarkable. No significant stenosis. No dissection or occlusion. Right internal carotid artery: Unremarkable. Extracranial segment is patent with no significant stenosis. No dissection or occlusion. Right external carotid artery: Unremarkable. No occlusion. Right vertebral artery: Unremarkable. No significant stenosis. No dissection or occlusion. Left common carotid artery: Unremarkable. No significant stenosis. No dissection or occlusion. Left internal carotid artery: Unremarkable. Extracranial segment is patent with no significant stenosis. No dissection or occlusion. Left external carotid artery: Unremarkable. No occlusion. Left vertebral artery: Unremarkable. No significant stenosis. No dissection or occlusion. Soft tissues: Unremarkable as visualized. CAROTID STENOSIS REFERENCE USING NASCET CRITERIA: % ICA stenosis = (1 - narrowest ICA diameter/diameter of distal cervical ICA) x 100. Mild - <50% stenosis. Moderate - 50-69% stenosis. Severe - 70-94% stenosis. Near occlusion - 95-99% stenosis. Occluded - 100% stenosis. IMPRESSION: Normal neck MRA. Electronically signed by: Chato Viveros MD 12/28/24 23:36 PM
[2024-12-29 06:49] LABS: Basophils # (auto) 0.04 K/uL (0.00-0.20); Basophils % (auto) 0.5 %; Eosinophils % (auto) 2.7 %; Hematocrit (blood only) 39.2 % (42.0-52.0); Hemoglobin 13.2 g/dl (14.0-18.0); Immature Granulocytes # (auto) 0.02 K/uL (0.01-0.20); Immature Granulocytes % (auto) 0.3 %; Lymphocytes # (auto) 1.63 K/uL (1.20-3.40); Lymphocytes % (auto) 21.7 %; Mean Corpuscular Hemoglobin 29.5 pg (25.0-34.0); Mean Corpuscular Hgb Conc 33.7 g/dL (32.0-36.0); Mean Corpuscular Volume 87.7 fL (80.0-100.0); Mean Platelet Volume 10.4 fL (9.4-12.4); Monocytes # (auto) 0.67 K/uL (0.11-0.59); Monocytes % (auto) 8.9 %; Neutrophils # (auto) 4.94 K/uL (1.40-6.50); Neutrophils % (auto) 65.9 %; Platelet Count 196 K/uL (130-400); RDW Coefficient of Variation 14.1 % (11.5-14.5); RDW Standard Deviation 45.7 fL (36.4-46.3); Red Blood Count 4.47 M/uL (4.70-6.10)
[2024-12-29 07:22] LABS: Albumin Globulin Ratio 1.5 (0.9-2); BUN Creatinine Ratio 12.3 (10-20); Bilirubin,Total 0.4 mg/dl (0.2-1.0); Calcium 8.9 mg/dl (8.6-10.3); Chol HDL Ratio 3.9 (0-5); Creatinine Clr Calc Pharmacy 108.8 ml/min; Globulin 2.7 gm/dl (2.5-4.0); Magnesium 2.1 mg/dl (1.7-2.4); Potassium 4.2 mmol/L (3.5-5.1); Total Protein 6.7 gm/dl (6.0-8.3)
[2024-12-29 07:30] LABS: Estimated Average Glucose 111 mg/dl; Hemoglobin A1C 5.5 % (4.5-5.6)
[2024-12-29 07:40] VITALS: RESP 20
[2024-12-29] MEDS: NICOTINE 14 MG/24 HR PATCH TD SCH (07:48)
[2024-12-29] MEDS: CLOPIDOGREL BISULFATE 75 MG TAB PO SCH (07:48)
[2024-12-29] MEDS: buPROPion XL 150 MG TABCR PO SCH (07:49)
[2024-12-29] MEDS: FAMOTIDINE 10 MG TABLET PO SCH (07:49)
[2024-12-29] MEDS: ASPIRIN 81 MG ECTAB PO SCH (08:57)
--- NOTE | 2024-12-29 09:06 | Neurology Consultation ---
Date of Consultation December 29, 2024 Assessment & Plan (1) Dizziness: History of Present Illness Attending Physician: Schuyler Krishnan History of Present Illness S: pt this morning feeling well. no further symptoms. mri brain and MRA head/neck normal. chart reviewed. admission HPI: Patient is a 44-year-old male with past medical history of GERD, hyperlipidemia, tobacco use. patient presented after an episode when he went from bending over to standing which resulted in dizziness, nausea, blurry vision, near syncope, and patient leaning to the left side. Neck CTA revealed possible right distal internal carotid artery dissection versus artifact. Patient is still symptomatic on admission, will admit for stroke workup and further carotid artery evaluation with MRI brain and MRA angiograms. Patient seen at bedside with his present. He stated that for the past month he has had constant low back pain that radiates to his bilateral toes so he has been going to the chiropractor who has been mainly working on his low back but also his neck. Today while at work he went from being bent over to standing and had dizziness, nausea, paleness, and felt like he was going to pass out and saw black spots. Symptoms are still present however slowly improving. He also felt like he was Leaning to the left side when walking. He also endorses shortness of breath during the presyncopal episode. He denies any other episodes similar to this other than what happened today. He has had no chest pain, dizziness, abdominal pain recently. He stated he has had intermittent headaches over the past month. He does endorse smoking 1 pack of cigarettes per day for the past 30 years. He occasionally drinks 1 glass of wine. he took his home medications today other than his atorvastatin which he takes in the evening, will order. Patient denies any personal or family history of CVA. He wishes to be full code. Handoff from ER provider stated that neurology is aware, will eval the patient in the morning. Neurology would like vascular consult. Allergies Allergy/AdvReac Type Severity Reaction Status Date / Time No Known Allergies Allergy Mild Verified 12/28/24 18:53 Home Medications Medication Instructions Recorded Confirmed Type bupropion HCl 150 mg 24 hr tablet, 150 mg PO QAM #30 tabs 10/25/24 12/28/24 Rx extended release atorvastatin 40 mg tablet 40 mg PO QPM #30 tabs 11/01/24 12/28/24 Rx cholecalciferol (vitamin D3) 25 25 mcg PO DAILY 12/28/24 12/28/24 History mcg (1,000 unit) tablet (Vitamin D3) cyanocobalamin (vitamin B-12) 1,000 mcg PO DAILY 12/28/24 12/28/24 History 1,000 mcg tablet (Vitamin B-12) famotidine 10 mg tablet (Heartburn 10 mg PO DAILY 12/28/24 12/28/24 History Relief (famotidine)) magnesium 250 mg tablet 250 mg PO DAILY 12/28/24 12/28/24 History multivitamin 1 tab PO QAM 12/28/24 12/28/24 History omega 1-ghn-pka-fish oil 1,200 mg 1 cap PO DAILY 12/28/24 12/28/24 History (144 mg-216 mg) capsule (Fish Oil) potassium 99 mg tablet 99 mg PO DAILY 12/28/24 12/28/24 History Patient History Surgical History Hx of cholecystectomy Family History Mother Diabetes Hypertension Father Hypertension Other Thyroid cancer Denies family history of Ovarian cancer Prostate cancer Myocardial infarction Breast cancer Colorectal cancer Social History Smoking Status: Current every day smoker Tobacco Type: Cigarettes Age Started Using Tobacco: 17; packs per day: 1; Cigarettes Per Day: a pack a day; Second Hand Exposure: No; Do You Dip or Chew Tobacco: No; Tobacco Cessation Education Requested by Patient: No Hx Alcohol Use: Yes Alcohol type: wine Hx Substance Use: No Preferred Language: Monegasque Communication Ability: Effective Line Tester Required: No Beliefs That Will Affect Care: None marital status: Current Living Situation: Significant Other current occupational status: employed current occupation: [employer] How many Children do You have: 3 Other Information That Helps Us Care for You: Yes (Had the same work up at [facility] 10 yrs ago) Feels Safe at Home: Yes Safety Concerns: Feels Safe At This Time Childhood Exposure to Second-Hand Smoke: Yes Diet: regular caffeine: Yes (coffee) Dental Care, Regularly: Yes Physical Activity Frequency: Does not Exercise Seatbelt Use: sometimes Sunscreen Use: No Assistive Devices: Glasses and Hospital Bed Exam (Neuro) Physical Exam: HEENT: normocephalic grossly Neuro: Mental: AOx4, fluent speech, normal comprehension, no apraxia, no L/R confusion, no neglect CN: PERRL, Full EOM, symmetric face, midline T/U/P, grossly full ROM neck Motor: No abnormal movements, normal tone, 5/5 t/o bilaterally Coord: intact FNT b/l DTR: 2+ sym b/l Gait: intact grossly Impression: 44 yo male with likely peripheral vertigo symptoms and CTA finding is likely artifact in nature. Pt asymptomatic. MRA head/neck negative. Recommendations: no further work up needed at this point neurology ok for discharge will sign off. Chart reviewed I have spent more than 50% educating patient about potential diagnosis and neurological evaluation and coordinating care with patient's treatment team. Total time spent (including chart review and coordination of care): 45 min (this includes chart review). Results & Data Vital Signs (Past 12 Hours) Vital Signs Temp Pulse Pulse Resp BP Pulse Ox Pulse Ox 12/29/24 07:39 36.6 C 66 20 107/63 96 12/29/24 03:47 36.5 C 72 19 100/64 97 12/28/24 22:26 59 L 12/28/24 22:15 12/28/24 22:15 36.7 C 65 19 131/83 99 12/28/24 22:09 95 12/28/24 22:09 36.7 C 65 19 131/83 99 12/28/24 21:35 73 20 134/97 97 O2 Del Method O2 Del Method 12/29/24 07:39 Room Air 12/29/24 03:47 Room Air 12/28/24 22:26 12/28/24 22:15 Room Air 12/28/24 22:15 Room Air 12/28/24 22:09 Room Air 12/28/24 22:09 Room Air 12/28/24 21:35 Room Air PG Care Time/CCT Total # of Minutes Spent Total Time Spent with Patient: Total time spent is greater than 50% in coordination of care (as documented) at patient's floor/unit and/or counseling patient: Coding Level of Care Code 32162 IN/OBS CONSULT LVL 3,45M Diagnoses Dizziness R42
--- NOTE | 2024-12-29 09:11 | XCELERA ---
[id number]
--- NOTE | 2024-12-29 10:24 | Communication Note ---
Date of Service: December 29, 2024 This finding on CTA is not in the realm of vascular surgery due to its location. It would fall under neuroradiology interventionalist. thx.
[2024-12-29] MEDS: ACETAMINOPHEN 325 MG TAB PO PRN (11:51)
[2024-12-29 11:52] VITALS: BP 98/61; TEMP 98.1; O2SAT 99
[2024-12-29] MEDS ORDERED: STROKE PATIENT DISCHARGE STA (14:20)
[2024-12-29 14:29] VITALS: PULSE 53
--- NOTE | 2024-12-29 15:02 | Discharge Summary ---
Discharge Summary Date of Service December 29, 2024 Principal Dx & Hospital Course #1 = Principal Diagnosis (1) Carotid artery dissection: (2) Stroke-like symptoms: (3) Low back pain: Plan Patient is a 44-year-old male with past medical history of GERD, hyperlipidemia, tobacco use. patient presented after an episode when he went from bending over to standing which resulted in dizziness, nausea, blurry vision, near syncope, and patient leaning to the left side. Neck CTA revealed possible right distal internal carotid artery dissection versus artifact. Patient is still symptomatic on admission, will admit for stroke workup and further carotid artery evaluation with MRI brain and MRA angiograms. #right distal internal carotid artery dissection/stroke workup - Neck CTA revealed possible right distal internal carotid artery dissection versus artifact. Head CTA negative for acute changes. - stroke without TNK order set - active ROM, Q4H neuro checks, pt/ot evals, speech eval - DAPT with ASA and plavix - loaded in ED - continue with asa 81mg PO and Plavix 75mg PO daily - continue home atorvastatin 40mg daily - MRI Brain, MR angio neck, MRI angio brain ordered: reviewed and normal. - discussed with neurology, no vascular intervention required. #low back pain - constant x1 month. AP CT showed moderate facet hypertrophic changes at l4-l5 and l5-s1 level. - Tylenol prn #anemia - mild. normocytic normochromic. Hgb drop from 14.5 -> 12.9 over 2 years. - trend CBC #HLD - continue atorvastatin #GERD - continue famotidine #mental health - continue bupropion #tobacco use - 1 ppd cigarettes. - NicoDerm patched ordered - encourage smoking cessation Admission HPI Per Admitting Provider Patient is a 44-year-old male with past medical history of GERD, hyperlipidemia, tobacco use. patient presented after an episode when he went from bending over to standing which resulted in dizziness, nausea, blurry vision, near syncope, and patient leaning to the left side. Neck CTA revealed possible right distal internal carotid artery dissection versus artifact. Patient is still symptomatic on admission, will admit for stroke workup and further carotid artery evaluation with MRI brain and MRA angiograms. Patient seen at bedside with his present. He stated that for the past month he has had constant low back pain that radiates to his bilateral toes so he has been going to the chiropractor who has been mainly working on his low back but also his neck. Today while at work he went from being bent over to standing and had dizziness, nausea, paleness, and felt like he was going to pass out and saw black spots. Symptoms are still present however slowly improving. He also felt like he was Leaning to the left side when walking. He also endorses shortness of breath during the presyncopal episode. He denies any other episodes similar to this other than what happened today. He has had no chest pain, dizziness, abdominal pain recently. He stated he has had intermittent headaches over the past month. He does endorse smoking 1 pack of cigarettes per day for the past 30 years. He occasionally drinks 1 glass of wine. he took his home medications today other than his atorvastatin which he takes in the evening, will order. Patient denies any personal or family history of CVA. He wishes to be full code. Handoff from ER provider stated that neurology is aware, will eval the patient in the morning. Neurology would like vascular consult. Discharge Exam Constitutional WD/WN, vitals as above Neck trachea midline, no thyromegaly Respiratory normal respiratory effort, lungs clear to auscultation Cardiovascular RRR, no murmur, no edema Discharge Plan Discharge Items Patient Disposition: Home - Self-Care Reason For Visit: STROKE WORKUP, CAROTID AA DISECTION Discharge Diagnosis: carotid aa disection Condition on Discharge: Good Activity: Resume your previous activity Non-emergency contact: Primary Care Provider Call non-emergency contact if: you have any medication questions Follow-up/Referrals: Tamera Del Rosario MD [Primary Care Provider] - 12/31/24 11:30 am (Primary Care hospital follow up scheduled on 12/31/24 at 11:30 with Tamera Del Rosario) Diet: Regular Addtl Attending Provider Instructions: Recommend followup with PCP in 1-2 weeks Pending Studies at Discharge: No Stand-Alone Forms: [employer], Smoking Cessation Medications and DC Order Prescriptions: Continued atorvastatin 40 mg tablet 40 mg PO QPM Qty: 30 2RF bupropion HCl 150 mg tablet extended release 24 hr 150 mg PO QAM Qty: 30 2RF multivitamin Tablet 1 tab PO QAM famotidine [Heartburn Relief (famotidine)] 10 mg Tablet 10 mg PO DAILY cyanocobalamin (vitamin B-12) [Vitamin B-12] 1,000 mcg Tablet 1,000 mcg PO DAILY potassium 99 mg Tablet 99 mg PO DAILY magnesium 250 mg Tablet 250 mg PO DAILY cholecalciferol (vitamin D3) [Vitamin D3] 25 mcg (1,000 unit) Tablet 25 mcg PO DAILY omega 8-ujr-ove-fish oil [Fish Oil] 1,200 (144-216) mg Capsule 1 cap PO DAILY Discharge Orders: Discharge Order (Routine); Ordered 12/29/24 Ordered By: Schuyler Krishnan Admission Data Admit Date/Time: 12/28/24 19:40 Attending Provider: Schuyler Krishnan Admit Provider: Shahid Petersen Primary Care Provider: Tamera Del Rosario Other Providers: Kwame Murray; Po Ho Other Interventions: Discharge Summary Assessment (RN) Last Done: 12/29/24 14:28 Hospital Stay Data Consultations 12/28/24 19:01 ED Decision to Admit Stat 12/28/24 22:09 Consult Neurology Routine Diagnostic Imagining Performed 12/28/24 15:41 CT abd pelvis IV con only Stat CT angio chest PE protocol Stat CT angio head wo/w Stat CT angio neck with con Stat 12/28/24 19:01 MRI Angio Brain [MR angio head wo con] Stat MRI Brain [MR brain wo con] Stat 12/28/24 19:03 MR angio neck wo/w con Stat Pending Results Patient Have Any Pending Studies at Discharge: No Discharge Instructions Given to Patient (Per Discharging Provider) Recommend followup with PCP in 1-2 weeks Total Time Total Time Spent Total Time Spent (In Minutes): 32 Coding Level of Care Code 38083 INP/OBS DISCH >30 MIN Diagnoses Carotid artery dissection I77.71 Stroke-like symptoms R29.90 Low back pain M54.50
== END 2024-12-29 14:49 | disposition home or self-care (01) | DRG 149 ==
LOC: ED 15:15 → SUATTDRO 19:40 → 2S 19:40
DX: Z79.899 Other long term (current) drug therapy; E78.5 Hyperlipidemia, unspecified; M54.50 Low back pain, unspecified; R29.90 Unspecified symptoms and signs involving the nervous system; K21.9 Gastro-esophageal reflux disease without esophagitis; R55 Syncope and collapse; D64.9 Anemia, unspecified; F17.210 Nicotine dependence, cigarettes, uncomplicated; R42 Dizziness and giddiness